=== PATIENT | female | born 1985 | race Hispanic/Latino ===

== ENCOUNTER → 2018-04-23 | Day surgery (SDC) | payer OTHER ==
[~2018-04-23] MED LIST: FENTANYL CITRATE/PF 100MCG/2 ML INJ ONE; MIDAZOLAM HCL 2 MG/2 ML VIAL ONE; PANTOPRAZOLE 40 MG 10ML VIAL ONE; PROPOFOL IV EMULSION 10 MG/ML 50 ML VIAL ONE
--- OUTSIDE RECORDS SUMMARY | 2018-04-23 11:29 | XMS REPORT | Clinical Summary ---
Author Author [employer] [facility] Organization [employer] [facility] Address Unknown Phone Unavailable Care Team Providers Care [employer] Drafter Name Role Phone Sunny Maddox MD PCP Allergies No Known Allergies Medications End Date Status Medication Sig Dispensed Refills Start Date Active Take 1 tablet 0 vit,[id number] 29 by mouth mg iron- 1 mg tablet per daily. tablet 12/10/2017 Discontinued PROGESTERONE VAGL Insert 1 0 suppository into the vagina daily. 12/19/2017 ibuprofen (ADVIL,MOTRIN) Take 1 tablet 30 tablet 0 600 MG tablet (600 mg 8 total) by mouth every 6 (six) hours as needed for mild pain for up to 30 doses. Active Problems Problem Noted Date Missed 12/10/2017 Encounters Care Team Description Date Type Specialty Kurtis Nobles MD SUCTION DILATION AND CURETTAGE 12/10/2017 Surgery General Surgery Margoth BaileyPHIL-Amrit 12/10/2017 Anesthesia General Surgery Event Simón Lofton MD Goudas, Vasilios, MD , spontaneous 12/10/2017 [facility] General Surgery Encounter Simón Lofton MD Preop testing (Primary Dx) 12/09/2017 Pre-Admit Pre-Admission Testing Testing Appointment after 04/22/2017 Family History Medical History Relation Name Comments No Known Problems Brother Diabetes Father Hypertension Father Diabetes Mother Hypertension Mother No Known Problems Sister Relation Name Status Comments Brother Alive Father Alive Mother Alive Sister Alive Social History Date Tobacco Use Types Packs/Day Years Used Never Smoker Smokeless Tobacco: Never Used Alcohol Use Drinks/Week oz/Week Comments No Sex Assigned at Date Recorded Not on file Industry Job Start Date Occupation Not on file Not on file Not on file Travel End Travel History Travel Start No recent travel history available. Last Filed Vital Signs Time Taken Vital Sign Reading 12/10/2017 4:28 PM CDT Blood Pressure 128/59 12/10/2017 4:28 PM CDT Pulse 65 12/10/2017 3:38 PM CDT Temperature 36.8 C (98.2 F) 12/10/2017 4:28 PM CDT Respiratory Rate 20 12/10/2017 4:28 PM CDT Oxygen Saturation 100% - Inhaled Oxygen - Concentration 12/10/2017 1:33 PM CDT Weight 93 kg (205 lb) 12/10/2017 1:33 PM CDT Height 167.6 cm (5' 6") 12/10/2017 1:33 PM CDT Body Mass Index 33.09 Plan of Treatment Health Maintenance Due Date Last Done Comments CERVICAL CANCER SCREENING 2004 INFLUENZA VACCINE 01/08/2018 Procedures Comments Procedure Name Priority Date/Time Associated Diagnosis MISCELLANEOUS REFERRAL Routine 12/10/2017 TEST 2:25 PM CDT MISCELLANEOUS REFERRAL Routine 12/10/2017 TEST 2:25 PM CDT SURGICAL PATHOLOGY Routine 12/10/2017 REQUEST 2:17 PM CDT IA AN ELECTIVE Routine 12/10/2017 SUPRAGLOTTIC AIRWAY 2:12 PM CDT Procedure Note - Aileen Sheehan CRNA - 12/10/2017 2:12 PM CDT Airway Date/Time: 12/10/2017 2:07 PM Performed by: AILEEN SHEEHAN Authorized by: STEVENSON SHERWOOD Location: OR Urgency: Elective Difficult Airway: No Resident/C RNA/AA: AILEEN SHEEHAN Performed by: resident/C RNA/AA Preoxygena sarah with 100% O2: Yes Mask Ventilatio n: Not attempted Final Airway Type: Supraglott ic airway Final LMA: I-Gel LMA Size: 4 Number of Attempts at Approach: 1 Lubricate d LMA easily inserted and seated. Teeth and lips unchanged from preoperati ve condition. HC COMPLETE BLD COUNT STAT 12/10/2017 W/AUTO DIFF 1:55 PM CDT SYPHILIS TREPONEMAL IGG Routine 12/09/2017 Preop testing 1:45 PM CDT HEPATITIS B SURFACE Routine 12/09/2017 Preop testing ANTIGEN 1:45 PM CDT HEPATITIS C ANTIBODY Routine 12/09/2017 Preop testing 1:45 PM CDT RAPID HIV 1 & 2 Routine 12/09/2017 Preop testing 1:45 PM CDT TYPE AND SCREEN Routine 12/09/2017 Preop testing 1:45 PM CDT after 04/22/2017 Results * Miscellaneous referral test (12/10/2017 2:25 PM CDT) Only the most recent of 2 results within the time period is included. [facility] test name [place] BILL ONLY [facility] test result SEE NOTEComment: ORDERED FOR [facility] BILLING PURPOSES ONLY; ALL RESULTS POSTED WITH ORIGINAL ORDERS. Narrative Performed At ORDERED FOR BILLING PURPOSES ONLY; ALL RESULTS POSTED WITH ORIGINAL ORDERS. [facility] Performing Organization Address City/State/Zipcode Phone Number [facility] [address] [place] [address] * Surgical pathology request (12/10/2017 2:17 PM CDT) [facility] DEPARTMENT OF PATHOLOGY AND GENOMIC MEDICINE Surgical pathology report See link below for PDF Lab [facility] DEPARTMENT OF Report PATHOLOGY AND GENOMIC MEDICINE Result status This is Final Report to [facility] DEPARTMENT OF [id number] PATHOLOGY AND GENOMIC MEDICINE Performing Organization Address City/State/Zipcode Phone Number [facility] [place] [address] [place] [address] PATHOLOGY AND GENOMIC MEDICINE * CBC with platelet and differential (12/10/2017 1:55 PM CDT) WBC 12.65 (H) 4.50 - 11.00 k/uL [facility] DEPARTMENT OF PATHOLOGY AND GENOMIC MEDICINE RBC 4.70 4.20 - 5.50 m/uL [facility] DEPARTMENT OF PATHOLOGY AND GENOMIC MEDICINE HGB 13.2 12.0 - 16.0 g/dL [facility] DEPARTMENT OF PATHOLOGY AND GENOMIC MEDICINE HCT 39.0 37.0 - 47.0 % [facility] DEPARTMENT OF PATHOLOGY AND GENOMIC MEDICINE MCV 83.0 82.0 - 100.0 fL [facility] DEPARTMENT OF PATHOLOGY AND GENOMIC MEDICINE MCH 28.1 27.0 - 34.0 pg [facility] DEPARTMENT OF PATHOLOGY AND GENOMIC MEDICINE MCHC 33.8 31.0 - 37.0 g/dL [facility] OF PATHOLOGY AND GENOMIC MEDICINE RDW - SD 41.5 37.0 - 55.0 fL [facility] PATHOLOGY AND GENOMIC MEDICINE MPV 10.3 8.8 - 13.2 fL [facility] PATHOLOGY AND RECOMBINETICS MEDICINE Platelet count 289 150 - 400 k/uL [facility] OF PATHOLOGY AND GENOMIC MEDICINE Neutrophils 75.6 (H) 39.0 - 69.0 % [facility] OF PATHOLOGY AND RECOMBINETICS MEDICINE Lymphocytes 17.5 (L) 25.0 - 45.0 % [facility] OF PATHOLOGY AND GENOMIC MEDICINE Monocytes 5.8 0.0 - 10.0 % [facility] OF PATHOLOGY AND RECOMBINETICS MEDICINE Eosinophils 0.2 0.0 - 5.0 % [facility] PATHOLOGY AND RECOMBINETICS MEDICINE Basophils 0.5 0.0 - 1.0 % [facility] PATHOLOGY AND RECOMBINET[facility] MEDICINE Immature granulocytes 0.4 0.0 - 1.0 % [facility] PATHOLOGY AND RECOMBINETICS MEDICINE Specimen Blood Performing Organization Address City/[facility] Phone Number [facility] DE[facility] [address] [facility] [address] PATHOLOGY AND [facility] * Syphilis treponemal IgG (12/09/2017 1:45 PM CDT) Syphilis treponemal IgG Non-reactiveComment: Non-reactive [facility] DEPARTMENT OF Non-reactive: No serological PATHOLOGY AND evidence of Syphilis infection [facility] Specimen Serum Performing Organization Address City/[facility] [place] [address] PATHOLOGY AND [facility] * Rapid HIV 1 & 2 (12/09/2017 1:45 PM CDT) Rapid HIV 1 and 2 Non-Reactive Non-Reactive [facility] PATHOLOGY AND [facility] MEDICINE Specimen Blood Performing Organization Address City/[facility]/Zipcode Phone Number [facility] [place] [id number] [place] [address]. [place] [address] PATHOLOGY AND [facility] * Hepatitis C antibody (12/09/2017 1:45 PM CDT) Hepatitis C Ab Non-reactive Non-reactive [facility] DEPARTMENT PATHOLOGY AND [facility]BINET[facility] MEDICINE Specimen Blood Performing Organization Address City/[facility]/Zipcode Phone Number [facility] [place] [address] PATHOLOGY AND [facility] * Hepatitis B surface antigen (12/09/2017 1:45 PM CDT) Hepatitis B surface Ag Non-reactive Non-reactive [facility] DEPARTMENT OF PATHOLOGY AND GENOMIC MEDICINE Specimen Blood Performing Organization Address City/State/Zipcode Phone Number [facility] [place] [address] [place] [address] PATHOLOGY AND GENOMIC MEDICINE * Type and screen (12/09/2017 1:45 PM CDT) ABO grouping O [facility] DEPARTMENT OF PATHOLOGY AND GENOMIC MEDICINE Rh type POS [facility] DEPARTMENT OF PATHOLOGY AND GENOMIC MEDICINE Antibody screen (gel) NEG [facility] DEPARTMENT OF PATHOLOGY AND GENOMIC MEDICINE Specimen Blood Performing Organization Address City/[facility] Phone Number [facility] [place] [address] [place] [address] PATHOLOGY AND GENOMIC MEDICINE after 04/22/2017 Insurance Payer Benefit Subscriber ID Type Phone Address Plan / Group AETNA AETNA xxxxxxxxxx HMO HMO,POS,EP O, MC/EC Advance Directives Patient has advance care planning documents on file. For more information, niyah veras contact: Tex Marcelino [address] [place] [address]
[2018-04-23 15:16] VITALS: BP 127/87
--- NOTE | 2018-04-23 15:33 | Operative Report ---
DATE OF PROCEDURE: April 23, 2018 REFERRING PHYSICIAN: Dr. Sunny Maddox PROCEDURE PERFORMED: Esophagogastroduodenoscopy with biopsies. INDICATIONS FOR EGD: Upper abdominal pain, bloating. MEDICATION: Patient was done under MAC. Please see anesthesiologist's note. PROCEDURE: With the patient in the left lateral decubitus position, the flexible fiberoptic Olympus gastroscope was introduced into the esophagus under direct visualization without any difficulty. There was some patchy erythema noted in the distal esophagus. The scope was then advanced with ease into the stomach. The mucosa overlying the antrum and the body revealed some patchy erythema and low-grade to moderate edema, and biopsies were obtained and sent to stain for H. pylori. Pylorus was of normal contour and shape. It was intubated with ease, and the scope was advanced all the way to the 2nd portion of the duodenum. The scope was then withdrawn slowly. The mucosa of the proximal 2nd portion grossly appeared to be within normal limits. Biopsies were obtained to rule out sprue. The scope was then withdrawn back into the stomach and retroflexed. Mucosa overlying the fundus and the cardia appeared to be within normal limits. The scope was then straightened out. It was subsequently withdrawn. Patient tolerated the procedure well. IMPRESSION 1. Distal esophagitis, mild. 2. Gastritis, biopsied. Biopsy sent to stain for H. pylori. 3. Rule out sprue. PLAN: Follow up histology. Initiate Protonix 40 mg 1 p.o. q.a.m. a.c. If the patient's symptoms persist, the patient will need gallbladder evaluation. Job#: [id number] cc:SUNNY MADDOX MD
== END | disposition home or self-care (01) ==
LOC: OR 11:26
PROVIDERS: ATTEND Internal Medicine Gastroenterology
DX: K29.50 Unspecified chronic gastritis without bleeding (principal); R10.11 Right upper quadrant pain; R14.0 Abdominal distension (gaseous); I10 Essential (primary) hypertension; E11.9 Type 2 diabetes mellitus without complications; K20.9 Esophagitis, unspecified; Z91.048 Other nonmedicinal substance allergy status
CPT/HCPCS: 43239; 81025; J2250

== ENCOUNTER → 2018-07-21 | Outpatient (CLI) | payer OTHER | LOC: NM 13:00 | PROVIDERS: ATTEND Internal Medicine Gastroenterology | DX: R10.84 Generalized abdominal pain (principal) | CPT/HCPCS: 81025 ==